=== PATIENT | male | born 1975 | race Caucasian/White ===

== ENCOUNTER 2020-02-01 09:51 | Emergency (ER) | payer BC, OTHER ==
[~2020-02-01] VITALS: Ht 170.7 cm; Wt 71.4 kg
[2020-02-01 10:03] VITALS: BP 123/76
--- NOTE | 2020-02-01 10:16 | ED General ---
General Chief Complaint: Laceration Stated Complaint: FOREHEAD LAC Source of Information: Patient History of Present Illness Date Seen by Provider: Feb 01, 2020 Time Seen by Provider: 09:45 Initial Comments Patient is a 44-year-old male who presents with persistent headache, dizziness, and scalp tenderness after striking his head with a large wrench 2 days ago while removing a starter from his vehicle. No loss of consciousness. Pain is rated 9 out of 10. Patient states symptoms have not improved. Patient has a 3 cm full-thickness laceration in early stages of healing. Patient's been using butterfly bandages to keep close. No other acute symptoms or complaints. Tetanus is up-to-date. Timing/Duration: 2-3 Days Severity: Moderate Modifying Factors: improves with Rest Associated Systoms: Nausea/Vomiting, Weakness (diffciulte concentrating) Allergies and Home Medications Allergies Coded Allergies: No Known Drug Allergies (Unverified , 02/01/20) Home Medications Tramadol HCl 50 Mg Tablet, 50 MG PO Q6H PRN for PAIN Prescribed by: RANDOLPH BIGGS on 02/01/20 1122 Patient Home Medication List Home Medication List Reviewed: Yes Review of Systems Review of Systems Constitutional: see HPI EENTM: see HPI Cardiovascular: see HPI Gastrointestinal: see HPI Genitourinary: see HPI Musculoskeletal: see HPI Skin: see HPI Psychiatric/Neurological: See HPI Hematologic/Lymphatic: See HPI Immunological/Allergic: see HPI Past Iljlpbt-[place]-Zafwum Hx Past Med/Social Hx: Reviewed Nursing Past Med/Soc Hx Patient Social History Alcohol Use: Occasionally Uses Recreational Drug Use: No Smoking Status: Current Everyday Smoker 2nd Hand Smoke Exposure: No Recent Foreign Travel: No Contact w/Someone Who Travel: No Recent Hopitalizations: No Immunizations Up To Date Tetanus Booster (TDap): Less than 5yrs Seasonal Allergies Seasonal Allergies: No Past Medical History Surgeries: No Respiratory: No Cardiac: No Neurological: No Genitourinary: No Gastrointestinal: No Musculoskeletal: No Endocrine: No HEENT: No Cancer: No Psychosocial: No Integumentary: No Blood Disorders: No Physical Exam Vital Signs Vital Signs - First Documented 02/01/20 10:03 Temp 36.8 Pulse 86 Resp 16 B/P (MAP) 123/76 (92) Pulse Ox 100 O2 Delivery Room Air Capillary Refill : Height, Weight, BMI Height: '" Weight: lbs. oz. kg; BMI Method: General Appearance: No Apparent Distress, WD/WN Eyes: Bilateral Eye Normal Inspection, Bilateral Eye PERRL, Bilateral Eye EOMI HEENT: PERRL/EOMI, Normal ENT Inspection, Pharynx Normal Neck: Normal Inspection, Non Tender, Supple Respiratory: Lungs Clear Cardiovascular: Regular Rate, Rhythm Gastrointestinal: Non Tender, Soft Back: No CVA Tenderness Neurologic/Psychiatric: Alert, Oriented x3, No Motor/Sensory Deficits, Normal M ood/Affect Focused Exam Sepsis Stage: Ruled Out Progress/Results/Core Measures Suspected Sepsis SIRS Temperature: Pulse: Respiratory Rate: Blood Pressure / Mean: Results/Orders My Orders Orders - RANDOLPH BIGGS DO Ct Head Wo (02/01/20 10:04) Vital Signs/I&O 02/01/20 10:03 Temp 36.8 Pulse 86 Resp 16 B/P (MAP) 123/76 (92) Pulse Ox 100 O2 Delivery Room Air Capillary Refill : Departure Communication (Admissions) Closed head tree with concussion syndrome. Laceration healing without signs of infection. Typical headache injury instructions provided. Courtesy work note provided. Impression Primary Impression: Concussion Disposition: 01 HOME, SELF-CARE Condition: Stable Departure-Patient Inst. Referrals: NO,LOCAL PHYSICIAN (PCP/Family) Primary Care Physician Patient Instructions: Concussion in Adults Add. Discharge Instructions: Please take Motrin for pain, and tramadol as needed for additional relief. Avoid strenuous physical activity and heavy lifting. Follow-up with your PCP in 3-5 days for reevaluation if symptoms persist. Return to ED if worse. All discharge instructions reviewed with patient and/or family. Voiced underst anding. Scripts Tramadol HCl (Tramadol HCl) 50 Mg Tablet 50 MG PO Q6H PRN for PAIN for 3 Days, #30 TAB 0 Refills Prov: RANDOLPH BIGGS DO 02/01/20 Work/School Note: Family Work Note Patient Received Medical Care In the Emergency Department On: Feb 01, 2020 Patient Will Be Able to Return to Work/School On: Feb 03, 2020 RANDOLPH BIGGS DO Feb 01, 2020 10:16
--- NOTE | 2020-02-01 10:33 | Diagnostic Imaging Report ---
EXAMINATION: CT head without contrast. TECHNIQUE: Multiple contiguous axial images were obtained through the brain without the use of intravenous contrast. All CT scans use one or more of the following dose optimizing techniques: automated exposure control, MA and/or KvP adjustment based on a patient size and exam type, or iterative reconstruction. HISTORY: Injury to the head. COMPARISON: None available. FINDINGS: The ventricles and sulci are normal. No abnormal attenuation of brain parenchyma is present. No acute intracranial hemorrhage or abnormal extra-axial fluid collections are present. No hyperdense vessel. The calvarium is intact. The mastoid air cells are clear. The visualized paranasal sinuses are clear. The orbits are normal. Minimal soft tissue disruption overlying the right frontal scalp. IMPRESSION: 1. No acute intracranial abnormality. 2. Likely small right frontal scalp laceration without underlying calvarial fracture. Dictated by: Dictated on workstation # [id number]
[2020-02-01] MEDS ORDERED: TRM50T PO (11:22)
== END 2020-02-01 11:27 | disposition home or self-care (01) ==
LOC: ER FS 09:53
DX: S06.0X0A Concussion without loss of consciousness, initial encounter (principal); F17.200 Nicotine dependence, unspecified, uncomplicated; W22.8XXA Striking against or struck by other objects, initial encounter
CPT/HCPCS: 70450